=== PATIENT | male | born 1990 | race Caucasian/White ===

== ENCOUNTER 2023-08-21 05:19 | Emergency (ER) | payer MEDICAID, OTHER ==
[~2023-08-21] VITALS: Ht 188 cm; Wt 91.4 kg
[2023-08-21 05:27] VITALS: BP 113/75; PULSE 74; RESP 16; TEMP 97.7; O2SAT 98
== END 2023-08-21 07:38 | disposition left against medical advice (07) ==
LOC: ER 05:19
DX: F29 Unspecified psychosis not due to a substance or known physiological condition (principal); Z53.21 Procedure and treatment not carried out due to patient leaving prior to being seen by health care provider
CPT/HCPCS: 99281